=== PATIENT | male | born 1955 | race Caucasian/White ===

== ENCOUNTER 2021-02-14 10:57 | Emergency (ER) | payer MEDICARE, OTHER, SELFPAY ==
[2021-02-14 11:12] VITALS: BP 123/71; PULSE 92; RESP 18; TEMP 36.3; O2SAT 99
--- NOTE | 2021-02-14 11:50 | ED.UPPEXIN ---
HPI - Extremity Injury (Upper) General Chief Complaint: Upper Respiratory Infection Stated Complaint: cough Time Seen by Provider: 02/14/21 11:50 Source: patient Mode of arrival: ambulatory Limitations: no limitations History of Present Illness HPI narrative: Jerome Berumen is a 65 yo male with PMH of HTN, high cholesterol, diabetes T 2, [facility] with almost a week of dry deep cough, states that getting up on walking around triggers it as well as at night. He states he is not short of breath, he has been vaccinated for Covid, had no recent medication change and is not on an RJ inhibitor Related Data Allergies Allergy/AdvReac Type Severity Reaction Status Date / Time No Known Allergies Allergy Unverified 11/17/13 13:37 Review of Systems Review of Systems: CONSTITUTIONAL: Denies fever, chills, sweats. EYES: Denies visual changes, redness, discharge. ENT: Denies rhinorrhea, congestion, sore throat, otalgia. CARDIOVASCULAR: Denies chest pain, palpitations, edema. RESPIRATORY: Denies dyspnea, wheezing, has dry deep cough GASTROINTESTINAL: Denies abdominal pain, nausea, vomiting, diarrhea. GENITOURINARY: Denies dysuria, hematuria, abnormal discharge SKIN: Denies rash or itching. NEUROLOGIC: Denies numbness, or focal weakness. PSYCHIATRIC: Denies anxiety or depression. [facility] Past Medical History Medical History Diabetes High cholesterol HTN (hypertension) Family History Family History Other Heart disease Hypertension Social History Social History (Updated 02/14/21 @ 12:03 by Ayesha Barnes CNP) Smoking status: Never smoker Alcohol intake: current Comments At time of signature, I agree with nursing past medical, surgical, social and family history. There is no relevant family history pertinent to the presenting complaint. Exam Narrative: GENERAL: This is a well-nourished, well-developed patient, in mild distress. HEAD: normocephalic, atraumatic. EYES: Sclera clear/white. Clear ear canals vision is grossly intact. EARS: External ears normal. Hearing grossly intact. NOSE: External nose normal without nasal discharge, nares without redness, no rhinorrhea. THROAT: Mucous membranes moist, posterior pharynx mild erythema NECK: Neck supple, CARDIOVASCULAR: Regular rate and rhythm without murmurs, gallops, or rubs. RESPIRATORY: Clear to auscultation. Breath sounds equal bilaterally. No wheezes, rales, or rhonchi. GASTROINTESTINAL: Abdomen soft, non-tender, SKIN: warm, intact with no suspicious lesions or rash, good texture and turgor. NEURO: awake, alert, and oriented to person, place and time. There were no obvious focal neurologic abnormalities. Steady gait EXTREMITIES: Normal range of motion. BACK: Nontender without deformity Course Course Emergency Course: Patient here for dry deep cough that started about a week ago he has been out of town recently Covid test done-negative Started on Tessalon Perles, Cepacol lozenges Vital Signs Vital signs: Vital Signs Temperature 97.4 F L 02/14/21 11:12 Pulse Rate 92 02/14/21 11:12 Respiratory Rate 18 02/14/21 11:12 Blood Pressure 123/71 02/14/21 11:12 Pulse Oximetry 99 02/14/21 11:12 Temperature 97.4 F L 02/14/21 11:12 Pulse Rate 92 02/14/21 11:12 Respiratory Rate 18 02/14/21 11:12 Blood Pressure 123/71 02/14/21 11:12 Pulse Oximetry 99 02/14/21 11:12 MDM - Extremity Injury (Upper) Lab Data Labs: Lab Results 02/14/21 Range/Units 12:03 POC SARS CoV-2 Ag Negative (Negative) Discharge Plan Discharge Clinical Impression: Cough Patient Disposition: Home, Self-Care Condition: Stable Instructions: Acute Cough (ED) Additional Instructions: May use cepacol lozenges which can be purchased [id number] Prescriptions: New benzonatate 200 mg capsule 200 mg PO
== END 2021-02-14 12:38 | disposition home or self-care (01) ==
PROVIDERS: Emergency Provider Nurse Practitioner
DX: R05.9 Cough, unspecified (principal); Z20.822 Contact with and (suspected) exposure to COVID-19; E11.9 Type 2 diabetes mellitus without complications; E78.00 Pure hypercholesterolemia, unspecified; I10 Essential (primary) hypertension
CPT/HCPCS: 87426; 99213; C9803; G0463